=== PATIENT | male | born 1945 | race Caucasian/White ===

== ENCOUNTER → 2016-07-03 | Outpatient (CLI) | payer MEDICARE, OTHER ==
[~2016-07-03] MED LIST: AMLODIPINE BESY10 MG PO; CLEOCIN HCL300 M1 PO; COLACE PO; NO MEDICATIONS; NYSTATIN1 EAC1 MC; PERCOCET 7.5-31 EACH PO
--- NOTE | ~2016-07-03 | CR7 ---
[facility] A Service of [facility] & [facility] RADIOLOGY TEXT RESULTS PATIENT: NANCY SERNA LOCATION: [facility] : 47 UNIT #: [id number] AGE: [address]: Francisco Camargo MD SEX: M ORDER DR: [id number] [facility] [address] [place], [place] [address] [id number] O MR#: [id number] Acc #: [id number] NAME: NANCY SERNA : 1945 SEX: M STUDY DATE/TIME: 07/03/2016 UNIT: [facility] ROOM: STUDY DESCRIPTION: CR Abdomen Single AP View Attending Physician: Francisco Camargo M.D. Referring Physician: Francisco Camargo M.D. Ordering Physician: Francisco Camargo M.D. Primary Care Physician: Elder Coronado M.D. MEDICAL IMAGING REPORT This report is preliminary unless electronic signature is present EXAM Abdomen single view 07/03/2016 09:43 hours HISTORY 70-year-old man for followup of kidney stones bilaterally. Patient complains of abdominal pain for 1 day. COMPARISON 05/08/2015 FINDINGS Cone view of the abdomen and a cone view of the pelvis are performed. There is a nonspecific bowel gas pattern. There is no definite intrarenal stones seen on the right or left. No ureteral calculus is seen. There is calcification in the left upper quadrant likely within the spleen representing a granuloma. There are no pelvic calcifications. Question sclerotic change at the upper aspect of the sacrum representing a change from prior exam. This could be reactive degenerative change; however, sclerotic or blastic metastatic disease could have this appearance. Correlate clinically. Reveal CT scan 10/03/2014 demonstrates degenerative disc disease with disc height loss, vacuum, phenomena and endplate sclerosis at L5 and upper aspect of the sacrum. This may account for the findings seen currently. Question bilateral pars defects. IMPRESSION 1. No renal or ureteral calculi are seen. 2. No evidence of bowel obstruction. 3. There is a sclerotic appearance to the upper aspect of the sacrum appearing increased from 05/08/2015. This could represent reactive change due to the degenerative changes at L5-S1 which are present on 07/03/2014 and there was some sclerosis in the inferior aspect of L5 STS. [facility] A Service of [facility] & [facility] RADIOLOGY TEXT RESULTS PATIENT: NANCY SERNA LOCATION: [facility] : [birth year] UNIT #: [id number] AGE: [address]: Francisco Camargo MD SEX: M ORDER DR: in the upper sacrum on that study. This could represent progression of those findings. Underlying sclerotic or blastic metastasis cannot be excluded however. No other bone lesions are seen. Dictated by... Dede Melara M.D. THIS IS AN ELECTRONICALLY VERIFIED REPORT Dede Melara M.D. at 07/03/2016 2:29 PM MICHI/teresa TD: 07/03/2016 10:30 JOB #: [id number] MEDICAL IMAGING REPORT Page 1 of 1 COPY
== END | disposition home or self-care (01) ==
LOC: CRAD 09:13
DX: N20.0 Calculus of kidney (principal)
CPT/HCPCS: 36415; 74000; G0103